=== PATIENT | female | born 1975 | race Caucasian/White ===

== ENCOUNTER 2017-06-21 07:03 | Day surgery (SDC) | payer MEDICAID ==
[~2017-06-21 07:03] MED LIST: Bupivacaine 0.5% 10 ML SDV ONE; Lactated Ringers 1,000 ML IV SCH; Lidocaine 1% 30 ML SDV ONE; Sodium Chloride 0.9% 10 ML Syringe FLUSH PRN; ceFAZolin 1 GM in Premix Bag 1 BAG IV ONE
[2017-06-21] MEDS ORDERED: Bacitracin Oint 1 GM U/D Packet TOP ONE (07:04)
[2017-06-21] MEDS ORDERED: Ketorolac 30 MG/ML SDV IVPUSH ONE (07:04)
[2017-06-21] MEDS ORDERED: Lidocaine 1% 30 ML SDV INJECT ONE ×6 (07:04→08:59)
[2017-06-21] MEDS ORDERED: Propofol 1,000 MG/100 ML SDV IV ONE (07:04)
[2017-06-21] MEDS ORDERED: Ondansetron 4 MG/2 ML SDV IV ONE (07:04)
[2017-06-21] MEDS ORDERED: Dexamethasone 4 MG/ML SDV IV ONE (07:04)
[2017-06-21] MEDS ORDERED: Bupivacaine 0.5% 10 ML SDV INJECT ONE ×6 (07:04→08:59)
[2017-06-21] MEDS ORDERED: Midazolam 1 MG/ML 2 ML SDV IV ONE (07:04)
[2017-06-21] MEDS ORDERED: Bacitracin Oint 1 GM U/D Packet ONE ×2 (08:59→09:18)
[2017-06-21] MEDS ORDERED: Bupivacaine 0.5% 10 ML SDV ONE (08:59)
[2017-06-21 10:52] VITALS: BP 124/82
--- NOTE | 2017-06-21 11:34 | PCM.OPNOTE ---
- General Post-Op/Procedure Note Date of Surgery/Procedure: 06/21/17 Operative Procedure(s): bilateral digits 1-10 permanent matrixectomy Pre Op Diagnosis: painful pincer toenails 1-10 b/l Post-Op Diagnosis: estefania Anesthesia Technique: Local, MAC Primary Surgeon: Brooke Lara Anesthesia Provider: Lebron Dent EBL in mLs: 5 Complications: none Condition: Stable Free Text/Narrative:: Intake & Output 06/20/17 06/21/17 06/21/17 22:59 06:59 14:59 Intake Total 900 Balance 900 Pt tolerated procedure well and was transported to pacu with vss and vascular status intact to all digits. TT 32 mins. WEll padded compression dressings applied.
--- NOTE | 2017-06-21 13:05 | OR ---
DATE: 06/21/2017 PREOPERATIVE DIAGNOSIS: Bilateral feet painful pincer toenails, digits 1 through 10. POSTOPERATIVE DIAGNOSIS: Bilateral feet painful pincer toenails, digits 1 through 10. PROCEDURE PERFORMED: Bilateral digits 1 through 10 permanent matrixectomy. ANESTHESIA: Local MAC with preoperative local block of 10 mL of 1:1 mixture of 1% lidocaine plain and 0.5% Marcaine plain. TOURNIQUET TIME: 32 minutes of pneumatic ankle tourniquets, bilateral. ESTIMATED BLOOD LOSS: Minimal. SPECIMEN: None. COMPLICATIONS: None. INDICATIONS: Maria Luisa is a 41-year-old female who presents with bilateral painful toenails, digits 1 through 10. I have seen her in the past and we tried doing Penlac for many months with no relief. She states the nails are continuing to get worse and more painful. They are pinching in at the corners and causing pain and redness, even sometimes drainage. She states her sister also had to get all of her toenails removed due to the same type of nail deformity. She is a diabetic, so worried about infection. The patient voiced good understanding of proposed procedure and possible complications, elects to have surgery at this time. We will permanently remove all of her toenails, they will not grow back. She understands and wants to go ahead. DESCRIPTION OF PROCEDURE: The patient was taken to the operating room, lying in supine position. After adequate anesthesia induction as described above, the bilateral feet were prepped and draped in the usual sterile fashion. A pneumatic ankle tourniquet was inflated to 225 mmHg bilateral. Attention was then directed to the toenails at digits 1 through 10. They were freed with a [place] elevator and completely removed from the toenails of 1 through 10. A curette was used to ensure all nail root and tissue were removed from the nail bed. Phenol was used to all nail matrices, digits 1 through 10. Three 30- second applications were applied to all the toenails with the phenol. A curette was used in between phenol applications to the nail beds. The areas were then irrigated with copious amounts of sterile saline. Bacitracin was applied to the nail beds and a gauze with Coban compression dressing. They were given written postoperative care instructions for the toenail procedures. She tolerated the procedure well and was transported to recovery with vital signs stable and vascular status intact to all digits upon deflation of the ankle tourniquets. She was then discharged home when she met hospital discharge requirements. [facility] /[id number]
== END 2017-06-21 10:34 | disposition home or self-care (01) ==
LOC: DL.SDS 07:03
PROVIDERS: ATTEND Podiatrist
DX: L60.2 Onychogryphosis (principal); E11.69 Type 2 diabetes mellitus with other specified complication; Z88.2 Allergy status to sulfonamides; Z91.030 Bee allergy status; F17.210 Nicotine dependence, cigarettes, uncomplicated; Z79.899 Other long term (current) drug therapy; Z79.84 Long term (current) use of oral hypoglycemic drugs; Z79.2 Long term (current) use of antibiotics; Z68.43 Body mass index [BMI] 50.0-59.9, adult
CPT/HCPCS: 01480; 11750; 81025; J0690; J7120; J1100; J1885; J2250; J2405; J2704

== ENCOUNTER 2017-07-08 16:55 | Emergency (ER) | payer MEDICAID ==
[2017-07-08 17:27] VITALS: BP 142/118
== END 2017-07-08 17:25 | disposition left against medical advice (07) ==
LOC: DL.ED 16:55
DX: Z53.21 Procedure and treatment not carried out due to patient leaving prior to being seen by health care provider (principal)
CPT/HCPCS: 99282

== ENCOUNTER 2017-12-03 17:45 | Emergency (ER) | payer MEDICAID ==
[2017-12-03] MEDS ORDERED: Ciprofloxacin 500 MG Tab PO ONE (17:46)
[2017-12-03 17:56] VITALS: BP 152/86
[2017-12-03] MEDS ORDERED: Sodium Chloride 0.9% 1,000 ML IV ONE (18:08)
[2017-12-03] MEDS ORDERED: Ondansetron 4 MG/2 ML SDV IV ONE (18:08)
[2017-12-03] MEDS ORDERED: HYDROmorphone 0.5 MG/0.5 ML Syringe IVPUSH ONE (18:21)
[2017-12-03] MEDS ORDERED: Iopamidol 612 MG/ML 75 ML Bottle IVPUSH ONE (18:40)
--- NOTE | 2017-12-03 19:00 | EDM.PDOC ---
<Moiz Horn M - Last Filed: 12/03/17 18:50> ED HPI GENERAL MEDICAL PROBLEM - General Chief Complaint: Abdominal Pain Stated Complaint: [id number] VERY SHARP PAIN IN RT AB VOMIT W/BACK PAIN Time Seen by Provider: 12/03/17 18:40 Source of Information: Reports: Patient History Limitations: Reports: No Limitations - History of Present Illness INITIAL COMMENTS - FREE TEXT/NARRATIVE: This 42 yo female patient reports to the ED with right upper abdominal pain and right flank pain. The patient reports her symptoms started this morning, but have gotten worse throughout the day. The patient reports her pain comes and goes, but at its worst it was a 10/10. Onset: Today Duration: Constant, Intermittent Location: Reports: Abdomen Quality: Reports: Ache, Sharp, Stabbing Severity: Moderate Improves with: Reports: None Worsens with: Reports: None Context: Reports: Other Middle Abdominal Pain Score (Numeric/FACES): 10 - Related Data Allergies Allergy/AdvReac Type Severity Reaction Status Date / Time Sulfa (Sulfonamide Allergy Hives Verified 06/21/17 08:06 Antibiotics) venom-honey bee Allergy Anaphylactic Verified 06/21/17 08:06 [bee venom (honey bee)] Shock Home Meds: Home Meds metFORMIN [Glucophage] 1,000 mg PO BID 08/28/15 [History] Spironolactone 50 mg PO DAILY 11/17/15 [History] buPROPion [Wellbutrin XL] 150 mg PO DAILY 11/17/15 [History] Ibuprofen [Advil] 400 mg PO ASDIRECTED PRN 02/12/16 [History] Adalimumab [Humira] 40 mg PO .WEEKLY 06/20/17 [History] Clindamycin Phosphate [Cleocin T] 1 unit TOP ASDIRECTED 06/20/17 [History] Lisinopril [Zestril] 1 tab PO DAILY 06/20/17 [History] Mupirocin Calcium [Bactroban] 1 unit TOP ASDIRECTED 06/20/17 [History] oxyCODONE HCl/Acetaminophen [oxyCODONE-Acetaminophen 5-325] 1 tab PO ASDIRECTED PRN 06/20/17 [History] Past Medical History HEENT History: Reports: Impaired Vision, Other (See Below) Other HEENT History: WEARS CORRECTIVE LENS Cardiovascular History: Reports: Blood Clots/VTE/DVT, High Cholesterol, Hypertension, SOB on Exertion Respiratory History: Reports: None Gastrointestinal History: Reports: None Genitourinary History: Reports: Renal Calculus 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: Musculoskeletal History: Reports: Arthritis, Back Pain, Chronic Neurological History: Reports: None Psychiatric History: Reports: Depression Endocrine/Metabolic History: Reports: Diabetes, Type II, Obesity/BMI 30+ Hematologic History: Reports: None Immunologic History: Reports: None Oncologic (Cancer) History: Reports: None Dermatologic History: Reports: Other (See Below) Other Dermatologic History: hydronitis supportive tibia (skin disease) - Infectious Disease History Infectious Disease History: Reports: Chicken Pox, MRSA - Past Surgical History Head Surgeries/Procedures: Reports: None HEENT Surgical History: Reports: None Cardiovascular Surgical History: Reports: None Respiratory Surgical History: Reports: None GI Surgical History: Reports: None Female Surgical History: Reports: Section Endocrine Surgical History: Reports: None Neurological Surgical History: Reports: None Musculoskeletal Surgical History: Reports: None Oncologic Surgical History: Reports: None Dermatological Surgical History: Reports: None Social & Family History - Family History Family Medical History: Noncontributory - Tobacco Use Smoking Status *Q: Current Every Day Smoker Years of Tobacco use: 22 Packs/Tins Daily: 0.5 Second Hand Smoke Exposure: Yes - Caffeine Use Caffeine Use: Reports: Coffee, Soda Other Caffeine Use: AVERAGE OF 1-2 COFFEE CUPS - Recreational Drug Use Recreational Drug Use: No Drug Use in Last 12 Months: No - Living Situation & Occupation Living situation: Reports: with Family Occupation: Unemployed ED ROS GENERAL - Review of Systems Review Of Systems: ROS reveals no pertinent complaints other than HPI. ED EXAM, GI/ABD - Physical Exam Exam: See Below Exam Limited By: No Limitations General Appearance: Alert, WD/WN, Moderate Distress, Obese Eyes: Bilateral: Normal Appearance, EOMI Ears: Normal External Exam, Normal Canal, Hearing Grossly Normal, Normal TMs Nose: Normal Inspection, Normal Mucosa, No Blood Throat/Mouth: Normal Inspection, Normal Lips, Normal Teeth, Normal Gums, Normal Oropharynx, Normal Voice, No Airway Compromise Head: Atraumatic Neck: Normal Inspection, Supple, Non-Tender, Full Range of Motion Respiratory/Chest: No Respiratory Distress, Lungs Clear, Normal Breath Sounds, No Accessory Muscle Use, Chest Non-Tender Cardiovascular: Normal Peripheral Pulses, Regular Rate, Rhythm, No Edema, No Gallop, No JVD, No Murmur, No Rub GI/Abdominal Exam: Guarding, Tender (RUQ), Other (morbid obesity) (Female) Exam: Deferred Rectal (Female) Exam: Deferred Back Exam: CVA Tenderness (R) Extremities: Normal Inspection, Normal Range of Motion, Non-Tender, Normal Capillary Refill, No Pedal Edema Neurological: Alert, Oriented, CN II-XII Intact, Normal Cognition, Normal Gait, Normal Reflexes, No Motor/Sensory Deficits Course - Vital Signs Last Recorded V/S: Last Vital Signs Temp 98.2 F 12/03/17 17:55 Pulse 144 H 12/03/17 17:55 Resp 18 12/03/17 17:55 BP 152/86 H 12/03/17 17:55 Pulse Ox 100 12/03/17 17:55 - Orders/Labs/Meds Orders: Active Orders 24 hr Category Date Time Status CULTURE BLOOD [BC] Stat Lab 12/03/17 18:46 Received CULTURE URINE [RM] Stat Lab 12/03/17 20:02 Ordered DRUG SCREEN URINE BIORAD [URCHEM] Stat Lab 12/03/17 17:53 Ordered HCG QUALITATIVE,URINE [URCHEM] Stat Lab 12/03/17 17:53 Ordered UA W/MICROSCOPIC [URIN] Stat Lab 12/03/17 17:53 Ordered Sodium Chloride 0.9% [Normal Saline] 1,000 ml Med 12/03/17 19:30 Active IV ASDIRECTED Medication Orders Sodium Chloride (Normal Saline) 1,000 mls @ 200 mls/hr IV ASDIRECTED MILTON Last Admin: 12/03/17 19:30 Dose: 200 mls/hr Labs: Laboratory Tests 12/03/17 12/03/17 12/03/17 Range/Units 17:53 17:53 17:53 WBC (5.0-10.0) 10^3/uL RBC (4.2-5.4) 10^6/uL Hgb (12.0-16.0) g/dL Hct (37.0-47.0) % MCV (80-100) fL MCH (27.0-34.0) pg MCHC (33.0-35.0) g/dL Plt Count (150-450) 10^3/uL Neut % (Auto) (42.2-75.2) % Lymph % (Auto) (20.5-50.1) % Pepin % (Auto) (2-8) % Eos % (Auto) (1.0-3.0) % Baso % (Auto) (0.0-1.0) % Sodium (135-145) mmol/L Potassium (3.6-5.0) mmol/L Chloride (101-111) mmol/L Carbon Dioxide (21.0-31.0) mmol/L Anion Gap BUN (7-18) mg/dL Creatinine (0.6-1.3) mg/dL Est Cr Clr Drug Dosing mL/min Estimated GFR (MDRD) BUN/Creatinine Ratio Glucose (74-105) mg/dL Calcium (8.4-10.2) mg/dl Total Bilirubin (0.2-1.0) mg/dL AST (10-42) IU/L ALT (10-60) IU/L Alkaline Phosphatase (42-121) IU/L Total Protein (6.7-8.2) g/dl Albumin (3.2-5.5) g/dl Globulin Albumin/Globulin Ratio Amylase (28-100) U/L Lipase (22-51) U/L Urine Color Yellow (YELLOW) Urine Appearance Turbid (CLEAR) Urine pH 7.0 (5.0-9.0) Ur Specific Flushing 1.020 (1.005-1.030) Urine Protein 30 H (NEGATIVE) Urine Glucose (UA) Negative (NEGATIVE) Urine Ketones Negative (NEGATIVE) Urine Occult Blood Small H (NEGATIVE) Urine Nitrite Positive H (NEGATIVE) Urine Bilirubin Negative (NEGATIVE) Urine Urobilinogen 0.2 (0.2-1.0) mg/dL Ur Leukocyte Esterase Small H (NEGATIVE) Urine RBC 5-10 H /HPF Urine WBC 10-20 H (0-5/HPF) /HPF Ur Epithelial Cells Moderate H /HPF Amorphous Sediment Few (0/HPF) /HPF Urine Bacteria Many H (0-FEW/HPF) /HPF Urine Mucus Few H /LPF Urine HCG, Qual Negative Urine Opiates Screen Negative (NEGATIVE) Ur Oxycodone Screen Negative (NEGATIVE) Urine Methadone Screen Negative (NEGATIVE) Ur Barbiturates Screen Negative (NEGATIVE) U Tricyclic Antidepress Negative (NEGATIVE) Ur Phencyclidine Scrn Negative (NEGATIVE) Ur Amphetamine Screen Negative (NEGATIVE) U Methamphetamines Scrn Negative (NEGATIVE) Urine MDMA Screen Negative (NEGATIVE) U Benzodiazepines Scrn Negative (NEGATIVE) Urine Cocaine Screen Negative (NEGATIVE) U Marijuana (THC) Screen Positive H (NEGATIVE) 12/03/17 12/03/17 Range/Units 18:00 18:46 WBC 15.6 H (5.0-10.0) 10^3/uL RBC 5.21 (4.2-5.4) 10^6/uL Hgb 15.0 D (12.0-16.0) g/dL Hct 45.3 (37.0-47.0) % MCV 86.9 (80-100) fL MCH 28.8 (27.0-34.0) pg MCHC 33.1 (33.0-35.0) g/dL Plt Count 287 D (150-450) 10^3/uL Neut % (Auto) 75.2 (42.2-75.2) % Lymph % (Auto) 18.3 L (20.5-50.1) % Pepin % (Auto) 5.2 (2-8) % Eos % (Auto) 1.1 (1.0-3.0) % Baso % (Auto) 0.2 (0.0-1.0) % Sodium 135 (135-145) mmol/L Potassium 3.7 (3.6-5.0) mmol/L Chloride 106 (101-111) mmol/L Carbon Dioxide 21.0 (21.0-31.0) mmol/L Anion Gap 11.7 BUN 12 (7-18) mg/dL Creatinine 0.8 (0.6-1.3) mg/dL Est Cr Clr Drug Dosing 89.08 mL/min Estimated GFR (MDRD) > 60 BUN/Creatinine Ratio 15.00 Glucose 162 H (74-105) mg/dL Calcium 8.1 L (8.4-10.2) mg/dl Total Bilirubin 0.5 (0.2-1.0) mg/dL AST 22 (10-42) IU/L ALT 19 (10-60) IU/L Alkaline Phosphatase 65 (42-121) IU/L Total Protein 7.3 (6.7-8.2) g/dl Albumin 3.6 (3.2-5.5) g/dl Globulin 3.7 Albumin/Globulin Ratio 0.97 Amylase 68 (28-100) U/L Lipase 24 (22-51) U/L Urine Color (YELLOW) Urine Appearance (CLEAR) Urine pH (5.0-9.0) Ur Specific Flushing (1.005-1.030) Urine Protein (NEGATIVE) Urine Glucose (UA) (NEGATIVE) Urine Ketones (NEGATIVE) Urine Occult Blood (NEGATIVE) Urine Nitrite (NEGATIVE) Urine Bilirubin (NEGATIVE) Urine Urobilinogen (0.2-1.0) mg/dL Ur Leukocyte Esterase (NEGATIVE) Urine RBC /HPF Urine WBC (0-5/HPF) /HPF Ur Epithelial Cells /HPF Amorphous Sediment (0/HPF) /HPF Urine Bacteria (0-FEW/HPF) /HPF Urine Mucus /LPF Urine HCG, Qual Urine Opiates Screen (NEGATIVE) Ur Oxycodone Screen (NEGATIVE) Urine Methadone Screen (NEGATIVE) Ur Barbiturates Screen (NEGATIVE) U Tricyclic Antidepress (NEGATIVE) Ur Phencyclidine Scrn (NEGATIVE) Ur Amphetamine Screen (NEGATIVE) U Methamphetamines Scrn (NEGATIVE) Urine MDMA Screen (NEGATIVE) U Benzodiazepines Scrn (NEGATIVE) Urine Cocaine Screen (NEGATIVE) U Marijuana (THC) Screen (NEGATIVE) Meds: Medications Generic Name Dose Route Start Last Admin Trade Name Freq PRN Reason Stop Dose Admin Sodium Chloride 1,000 mls @ 200 mls/hr 12/03/17 19:30 12/03/17 19:30 Normal Saline IV 200 mls/hr ASDIRECTED MILTON Administration Discontinued Medications Generic Name Dose Route Start Last Admin Trade Name Freq PRN Reason Stop Dose Admin Ceftriaxone Sodium 2 gm 12/03/17 20:03 Rocephin IVPUSH 12/03/17 20:04 ONETIME ONE Hydromorphone HCl 0.5 mg 12/03/17 18:21 12/03/17 18:25 Dilaudid IVPUSH 12/03/17 18:22 0.5 mg ONETIME ONE Administration Sodium Chloride 1,000 mls @ 999 mls/hr 12/03/17 18:08 12/03/17 18:11 Normal Saline IV 12/03/17 19:08 999 mls/hr .BOLUS ONE Administration Iopamidol 125 ml 12/03/17 18:40 Isovue-300 (61%) IVPUSH 12/03/17 18:41 ONETIME ONE Morphine Sulfate 2 mg 12/03/17 19:33 12/03/17 19:38 Morphine IVPUSH 12/03/17 19:34 2 mg ONETIME ONE Administration Ondansetron HCl 4 mg 12/03/17 18:08 12/03/17 18:14 Zofran IV 12/03/17 18:09 4 mg ONETIME ONE Administration Departure - Departure Disposition: Home, Self-Care 01 Clinical Impression: Abdominal pain, UTI (urinary tract infection) - Discharge Information Instructions: Urinary Tract Infection, Adult, [id number] Referrals: Mitul Mann MD [Primary Care Provider] - Forms: ED Department Discharge Additional Instructions: increase fluids cipro 500mg one twice daily for one week' recheck clinic this week tylenol or ibuprofen for discomfort - My Orders Last 24 Hours: My Active Orders 12/03/17 19:30 Sodium Chloride 0.9% [Normal Saline] 1,000 ml IV ASDIRECTED 12/03/17 20:02 CULTURE URINE [RM] Stat - Assessment/Plan Last 24 Hours: My Active Orders 12/03/17 19:30 Sodium Chloride 0.9% [Normal Saline] 1,000 ml IV ASDIRECTED 12/03/17 20:02 CULTURE URINE [RM] Stat <Lily Mcintosh - Last Filed: 12/03/17 20:10> Departure - Departure Time of Disposition: 20:08 Condition: Good
[2017-12-03 19:13] LABS: CHLORIDE,CL 106 mmol/L (101-111); SODIUM,NA 135 mmol/L (135-145)
[2017-12-03] MEDS ORDERED: Sodium Chloride 0.9% 1,000 ML IV SCH (19:30)
[2017-12-03] MEDS ORDERED: Morphine 2 MG/ML Syringe IVPUSH ONE (19:33)
[2017-12-03] MEDS ORDERED: cefTRIAXone 2 GM Vial IVPUSH ONE (20:03)
[2017-12-03] MEDS ORDERED: cefTRIAXone 1 GM Vial ONE (20:06)
[2017-12-03] MEDS ORDERED: Ciprofloxacin 500 MG Tab ONE (20:20)
== END 2017-12-03 20:25 | disposition home or self-care (01) ==
LOC: DL.ED 17:45
DX: N39.0 Urinary tract infection, site not specified (principal); E78.00 Pure hypercholesterolemia, unspecified; I10 Essential (primary) hypertension; E11.9 Type 2 diabetes mellitus without complications; F17.210 Nicotine dependence, cigarettes, uncomplicated; Z88.2 Allergy status to sulfonamides; Z91.030 Bee allergy status; Z79.84 Long term (current) use of oral hypoglycemic drugs; Z79.899 Other long term (current) drug therapy
CPT/HCPCS: 36415; 74178; 80053; 80305; 81001; 81025; 82150; 83690; 85025; 87040; 87086; 87088; 87186; 96361; 96374; 96375; 99284; A9270; J0696; J1170; J2270; J2405; J7030; Q9967

== ENCOUNTER 2018-02-07 05:44 | Day surgery (SDC) | payer MEDICAID ==
[2018-02-07] MEDS ORDERED: fentaNYL 100 MCG/2 ML SDV IV ONE ×3 (05:45→07:29)
[2018-02-07] MEDS ORDERED: Midazolam 1 MG/ML 2 ML SDV IV ONE ×3 (05:45→07:30)
[2018-02-07] MEDS ORDERED: fentaNYL 100 MCG/2 ML SDV ONE (06:17)
[2018-02-07] MEDS ORDERED: Midazolam 1 MG/ML 2 ML SDV ONE (06:17)
[2018-02-07] MEDS ORDERED: Dextrose 5%-0.45% NaCl 1,000 ML IV SCH (07:00)
[2018-02-07 11:37] VITALS: BP 136/88
--- NOTE | 2018-02-07 14:31 | OR ---
DATE: 02/07/2018 PROCEDURE: Esophagogastroduodenoscopy and multiple pinch biopsies. INSTRUMENT USED: GIF-H180 Olympus video panendoscope. PREMEDICATIONS: No oral topical anesthesia used. Fentanyl 100 mcg intravenous, Versed 2 mg intravenous. The procedure was done under pulse oximetry, BP recording, and international accounting manager. INDICATION: The patient with persistent abdominal pain, unexplained, and not responsive to medical measures, positive FIT. Esophagogastroduodenoscopy is performed for detection of any active erosive lesions, Viramontes esophagus and/or malignancy also under consideration, H. pylori status to be determined, endoscopic hemostasis therapy if needed. DESCRIPTION OF PROCEDURE: The scope was passed with ease. Adequate visualization of the esophagus was made from proximal to distal areas. No upper esophageal lesions identified. No distal esophageal stricture. No uphill or downhill esophageal varices. No Yokasta-Beckman tear. No evidence of erosive esophagitis by Trigg criteria. No esophageal polyp or tumor mass identified. Z-line was seen at around 40 cm distal to the oral verge, configuration consistent with grade 1 by ZAP classification. No proximal gastric varices noted. Gastric fundus examination by retroflexion showed no polypoid lesions. No gastric ulcer, polyp, tumor mass, or vascular ectasia identified. Duodenal bulb showed no ulcer. Visualized second part of the duodenum was unremarkable. Multiple pinch biopsies were taken from the gastric antrum and proximal body and sent for PyloriTek test for H. pylori, and if negative in an hour, tissue is to be sent for histopathology. No bleeding was noted from any of the visualized areas at the completion of examination. Photographs were taken of the duodenal bulb, gastric antrum, fundus, and distal esophagus. IMPRESSION: Normal study. The patient tolerated the procedure well. [facility] /[id number]
== END 2018-02-07 09:36 | disposition home or self-care (01) ==
LOC: DL.ENDO 05:44
PROVIDERS: ATTEND Internal Medicine Gastroenterology
DX: K29.50 Unspecified chronic gastritis without bleeding (principal); B96.81 Helicobacter pylori [H. pylori] as the cause of diseases classified elsewhere; E11.9 Type 2 diabetes mellitus without complications; F17.210 Nicotine dependence, cigarettes, uncomplicated; R19.5 Other fecal abnormalities; Z88.2 Allergy status to sulfonamides; E66.01 Morbid (severe) obesity due to excess calories; F41.9 Anxiety disorder, unspecified; F32.9 Major depressive disorder, single episode, unspecified
CPT/HCPCS: 43239; 87077; J2250; J3010; J7042

== ENCOUNTER → 2018-02-13 | Day surgery (SDC) | payer MEDICAID ==
[~2018-02-13] MED LIST changes: -Bupivacaine 0.5% 10 ML SDV ONE; +Dextrose 5%-0.45% NaCl 1,000 ML IV SCH; -Lactated Ringers 1,000 ML IV SCH; -Lidocaine 1% 30 ML SDV ONE; +Midazolam 1 MG/ML 2 ML SDV IV ONE; +Midazolam 1 MG/ML 2 ML SDV ONE; -ceFAZolin 1 GM in Premix Bag 1 BAG IV ONE; +fentaNYL 100 MCG/2 ML SDV IV ONE; +fentaNYL 100 MCG/2 ML SDV ONE
--- NOTE | 2018-02-13 10:09 | OR ---
DATE: 02/13/2018 PROCEDURES: Total colonoscopy and multiple snare polypectomies. INSTRUMENTS USED: CF-H180 AL Olympus video colonoscope and PCF-H180 AL Olympus colonoscope. PREMEDICATIONS: Fentanyl 150 mcg intravenous, Versed 4 mg intravenous. O2 cannula. The procedure was done under pulse oximetry, BP recording, and cardiac surgeon. INDICATION: The patient with positive FIT. Colonoscopic examination is done for detection of any polypoid lesions and removal. Endoscopic hemostasis therapy if needed. DESCRIPTION OF PROCEDURE: Initial rectal exam showed external hemorrhoidal tags. Rigid anoscopy was normal. The CF-H180 AL Olympus video colonoscope was passed with ease. Numerous scattered diverticula were noted along with deformity. In the proximal sigmoid colon, 1-cm sized benign-appearing polyp was noted. Snare polypectomy was done. The tissue was retrieved and sent for histopathology. Polypectomy site was found to be clean. In the rectum, 3-mm sized benign-appearing polyp was noted. Cold snare polypectomy was done. The tissue was retrieved and sent for histopathology. The scope was withdrawn and replaced by PCF-H180 AL Olympus video colonoscope, which was passed with ease up to the ileocecal area. Photographs were taken of the normal-appearing cecum. In the mid ascending colon, 1-cm sized benign-appearing polyp was noted. Snare polypectomy was done. The tissue was retrieved and sent for histopathology. No bleeding was noted from any of the visualized areas at the commencement of the examination. No stricture. No vascular ectasia. No large isolated ulcerations seen. No evidence of diffuse inflammatory bowel disease in the form of friability, contact bleeding, or ulcerations. Probing the proximal sides of folds and flexures, using adequate distention and clearing of the stool material, withdrawal of the scope was made. No bleeding was noted from any of the visualized areas at the completion of examination. IMPRESSION: 1. External hemorrhoids. 2. Diverticulosis. 3. Multiple colonic polyps. The patient tolerated the procedure well. [facility] /[id number]
[2018-02-13 10:53] VITALS: BP 114/67
== END | disposition home or self-care (01) ==
LOC: DL.ENDO 06:16
PROVIDERS: ATTEND Internal Medicine Gastroenterology
DX: R19.5 Other fecal abnormalities (principal); D12.2 Benign neoplasm of ascending colon; D12.5 Benign neoplasm of sigmoid colon; K62.1 Rectal polyp; K57.30 Diverticulosis of large intestine without perforation or abscess without bleeding; I10 Essential (primary) hypertension; E11.9 Type 2 diabetes mellitus without complications; E66.09 Other obesity due to excess calories; F41.1 Generalized anxiety disorder; F17.210 Nicotine dependence, cigarettes, uncomplicated; Z88.2 Allergy status to sulfonamides; Z80.0 Family history of malignant neoplasm of digestive organs
CPT/HCPCS: 45385; 82962; J2250; J3010; J7042

== ENCOUNTER 2018-12-11 13:55 | Emergency (ER) | payer MEDICAID ==
[2018-12-11 14:04] VITALS: BP 153/92
--- NOTE | 2018-12-11 14:43 | CR ---
Clinical history: 43-year-old female injured (fall on hand). Interpretation: 3 views right hand reveal some mild soft tissue swelling. No underlying fracture or dislocation right hand or wrist. No foreign bodies.
--- NOTE | 2018-12-11 16:05 | EDM.PDOC ---
<Amanda Lyons - Last Filed: 12/11/18 16:16> ED HPI GENERAL MEDICAL PROBLEM - General Chief Complaint: Upper Extremity Injury/Pain Stated Complaint: BROKE RT HAND? [id number] Time Seen by Provider: 12/11/18 16:00 Source of Information: Reports: Patient - History of Present Illness INITIAL COMMENTS - FREE TEXT/NARRATIVE: Patient is a 43 year old female presenting with right hand pain. 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 She states that she rested it at home for a little while but could not take the pain and swelling so she decided to come in. She reports associated tingling in fingers and shooting pain up her forearm with movement. Movement aggravates the pain. Resting makes it better. Right Hand Pain Score (Numeric/FACES): 10 - Related Data Allergies Allergy/AdvReac Type Severity Reaction Status Date / Time Sulfa (Sulfonamide Allergy Hives Verified 12/11/18 14:03 Antibiotics) venom-honey bee Allergy Anaphylactic Verified 12/11/18 14:03 [bee venom (honey bee)] Shock Home Meds: Home Meds Spironolactone 50 mg PO DAILY 11/17/15 [History] buPROPion [Wellbutrin XL] 450 mg PO DAILY 11/17/15 [History] Lisinopril [Zestril] 2.5 mg PO DAILY 06/20/17 [History] oxyCODONE HCl/Acetaminophen [oxyCODONE-Acetaminophen 5-325] 1 tab PO ASDIRECTED PRN 06/20/17 [History] Amitriptyline [Elavil] 25 mg PO BEDTIME 02/07/18 [History] Omeprazole 20 mg PO DAILY 02/12/18 [History] Past Medical History HEENT History: Reports: Impaired Vision, Other (See Below) Other HEENT History: WEARS CORRECTIVE LENS Cardiovascular History: Reports: Blood Clots/VTE/DVT, High Cholesterol, Hypertension, SOB on Exertion Respiratory History: Reports: None Gastrointestinal History: Reports: None Genitourinary History: Reports: Renal Calculus [employer]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: Musculoskeletal History: Reports: Arthritis, Back Pain, Chronic Neurological History: Reports: None Psychiatric History: Reports: Depression Endocrine/Metabolic History: Reports: Diabetes, Type II, Obesity/BMI 30+ Hematologic History: Reports: None Immunologic History: Reports: None Oncologic (Cancer) History: Reports: None Dermatologic History: Reports: Other (See Below) Other Dermatologic History: hydronitis supportive tibia (skin disease) - Infectious Disease History Infectious Disease History: Reports: Chicken Pox, MRSA - Past Surgical History Head Surgeries/Procedures: Reports: None HEENT Surgical History: Reports: None Cardiovascular Surgical History: Reports: None Respiratory Surgical History: Reports: None GI Surgical History: Reports: None Female Surgical History: Reports: Section, Tubal Ligation Endocrine Surgical History: Reports: None Neurological Surgical History: Reports: None Musculoskeletal Surgical History: Reports: None Oncologic Surgical History: Reports: None Dermatological Surgical History: Reports: None Social & Family History - Family History Family Medical History: Noncontributory - Tobacco Use Smoking Status *Q: Current Every Day Smoker Years of Tobacco use: 28 Packs/Tins Daily: 0.3 Second Hand Smoke Exposure: Yes - Caffeine Use Caffeine Use: Reports: Coffee, Soda Other Caffeine Use: AVERAGE OF 1-2 COFFEE CUPS - Recreational Drug Use Recreational Drug Use: Yes Drug Use in Last 12 Months: Yes Recreational Drug Type: Reports: Marijuana/Hashish - Living Situation & Occupation Living situation: Reports: with Family Occupation: Unemployed Review of Systems - Review of Systems Review Of Systems: ROS reveals no pertinent complaints other than HPI. ED EXAM, GENERAL - Physical Exam Exam: See Below Exam Limited By: No Limitations General Appearance: Alert, No Apparent Distress Eye Exam: Bilateral Eye: Normal Inspection Ears: Normal External Exam Head: Atraumatic, Normocephalic Neck: Normal Inspection Respiratory/Chest: Lungs Clear, Normal Breath Sounds Cardiovascular: Normal Peripheral Pulses, Regular Rate, Rhythm Peripheral Pulses: 4+: Radial (L), Radial (R) Extremities: Normal Capillary Refill, Limited Range of Motion, Other (Slight soft tissue swelling on dorsal aspect of hand. Pain with finger flexion, extension, and radial deviation on right. ). No: Redness Neurological: Alert, Oriented, CN II-XII Intact Psychiatric: Normal Affect, Normal Mood Skin Exam: Warm, Dry, Intact, Normal Color, No Rash. No: Ecchymosis, Erythema, Increased Warmth Course - Vital Signs Last Recorded V/S: Last Vital Signs Temp 36.8 C 12/11/18 13:59 Pulse 89 12/11/18 13:59 Resp 20 12/11/18 13:59 BP 153/92 H 12/11/18 13:59 Pulse Ox 100 12/11/18 13:59 Departure - Departure Time of Disposition: 16:18 Disposition: Home, Self-Care 01 Condition: Good Clinical Impression: Soft tissue injury - Discharge Information *PRESCRIPTION DRUG MONITORING PROGRAM REVIEWED*: No *COPY OF PRESCRIPTION DRUG MONITORING REPORT IN PATIENT CALEB: No Instructions: Hand Contusion, [id number] Forms: ED Department Discharge Care Plan Goals: 1. Ibuprofen 200mg 4 tablets every 8 hours PRN for pain. 2. Ice right hand every 20 minutes for 20 minutes. - Assessment/Plan Plan: 1. Ibuprofen 200mg 4 tablets every 8 hours PRN for pain. 2. Ice 20 minutes on and 20 minutes rest, repeat as needed for pain and swelling relief. <Delano Manning - Last Filed: 12/11/18 16:33> Course - Radiology Interpretation Free Text/Narrative:: XR Rt Hand: no fractures, see Rad. report. - Re-Assessments/Exams Free Text/Narrative Re-Assessment/Exam: 12/11/18 16:32 I personally performed or re-performed the physical examination and medical decision making. I have verified all student documentation or findings, including history, physical exam and/or medical decision making.
== END 2018-12-11 16:36 | disposition home or self-care (01) ==
LOC: DL.ED 13:55
DX: S69.81XA Other specified injuries of right wrist, hand and finger(s), initial encounter (principal); F17.210 Nicotine dependence, cigarettes, uncomplicated; E11.9 Type 2 diabetes mellitus without complications; F32.9 Major depressive disorder, single episode, unspecified; E78.00 Pure hypercholesterolemia, unspecified; I10 Essential (primary) hypertension; Z79.899 Other long term (current) drug therapy; Z88.2 Allergy status to sulfonamides; Z91.030 Bee allergy status; W20.8XXA Other cause of strike by thrown, projected or falling object, initial encounter
CPT/HCPCS: 73130-RT; 99283-25

== ENCOUNTER 2022-03-23 13:18 | Emergency (ER) | payer MEDICAID ==
[2022-03-23] MEDS ORDERED: Ketorolac 30 MG/ML SDV IM ONE (13:58)
[2022-03-23] MEDS ORDERED: Acetaminophen 500 MG Tab PO ONE (13:58)
[2022-03-23 14:13] VITALS: BP 155/100; PULSE 96
== END 2022-03-23 15:38 | disposition home or self-care (01) ==
LOC: DL.ED 13:18
DX: S93.602A Unspecified sprain of left foot, initial encounter (principal); K21.9 Gastro-esophageal reflux disease without esophagitis; I10 Essential (primary) hypertension; E11.9 Type 2 diabetes mellitus without complications; E66.9 Obesity, unspecified; Z68.43 Body mass index [BMI] 50.0-59.9, adult; Z88.2 Allergy status to sulfonamides; Z91.030 Bee allergy status; Z79.899 Other long term (current) drug therapy; Z79.84 Long term (current) use of oral hypoglycemic drugs; W01.0XXA Fall on same level from slipping, tripping and stumbling without subsequent striking against object, initial encounter
CPT/HCPCS: 73620-LT; 96372; 99283; A9270-GY; J1885